=== PATIENT | female | born 1940 | race Caucasian/White ===

== ENCOUNTER 2016-12-02 03:50 | Inpatient (IN) | payer MEDICARE, OTHER ==
[2016-12-02] VITALS (11 sets, daily range): BP systolic 104–224; BP diastolic 54–91; PULSE 74–89; RESP 13–20; O2SAT 93–98
[~2016-12-02] VITALS: Ht 157.5 cm; Wt 46.5 kg
--- NOTE | 2016-12-02 03:52 | ED.REPORT ---
HPI-Chest Pain 40 and Over Date of Service Dec 02, 2016 ED Provider: Kulwinder Cast MD Pt is a 76 year old female with a history of triple bypass, HTN, DM, MCI, and cardiac stent placement who presents to the ED via EMS complaining of substernal chest pain onset 00:00 while she was sleeping. She c/o pain radiating to her back, SOB, and dizziness. She denies any other symptoms. Pt was given Nitro 0.4 mg SL x3 at 01:00 en route with relief. She was also provided Nitro 1x 0.4 mg SL and ASA 243 mg chewable MEDICATION RECONCILIATION TECHNICIAN by EMS. Nursing Notes Stated Complaint: CHEST PAIN Chief Complaint: Chest pain Nursing Notes Reviewed: Yes Allergies: Coded Allergies: sulfamethoxazole (Verified Allergy, Unknown, 12/02/16) trimethoprim (Verified Allergy, Unknown, 12/02/16) Scheduled Atorvastatin (Lipitor) 20 Mg Tablet 20 MG PO DAILY Bimatoprost (Lumigan) 45 Drop/2.5 Ml Ophsoln 45 DROP OD HS Carvedilol (Carvedilol) 3.125 Mg Tablet 3.125 MG PO DAILY Clopidogrel Bisulfate (Plavix) 75 Mg Tablet 75 MG PO DAILY Fluoxetine (Fluoxetine) 10 Mg Capsule 10 MG PO DAILY Furosemide (Furosemide) 20 Mg Tab 20 MG PO DAILY take 1 tab daily PRN for weight gain of 2# or more a day or 5# weekly, do not exceed 1 tab in 24 hrs Insulin Glargine (Lantus U100 Solostar Insulin Pen) 100 Unit/1 Ml Insuln.pen 7 UNIT SUBQ QPM cut dose in 1/2 if nothing by mouth Insuln Asp Prt/Insulin Aspart (NovoLOG 70/30 U100 Insulin Flexpen) 100 Unit/Ml Unit 1 UNIT SUBQ HS per sliding scale Levothyroxine (Levothyroxine) 112 Mcg Tablet 112 MCG PO DAILY Scheduled PRN Nitroglycerin SL (Nitroglycerin SL) 0.4 Mg Tab.subl 0.4 MG SL PRN as needed Miscellaneous Medications Brimonidine Tartrate (Alphagan P) 5 Ml Drops 5 ML OP Eplerenone (Inspra) 25 Mg Tablet 25 MG PO General Time Seen by MD: 03:51 Chief Complaint Chest pain Hx Obtained From: Patient, EMS Arrived By: Ambulance Sudden in Onset?: No Onset Occurred: 1 - 4 hours ago Symptom Duration: Since onset Location: : Substernal Quality: Painful Radiation: : Back Migration/Movement: Reports: None Severity: Current: Moderate Severity: Maximum: Moderate Recent Healthcare: No recent doctor visit, No recent hospitalization Similar Sx Previous: Yes Past Medical History Past Medical History Hypothyroidism Kidney failure MCI Stroke Glaucoma Peripheral neuropathy Reports: Diabetes mellitus (Type I), GERD Reports: Depression Past Surgical History Triple bypass Smoking History Former Smoker Social History Alcohol Use: Denies alcohol use Drug Use: Denies drug use Ambulatory Status Independent Review of Systems Constitutional: Denies: Fever Respiratory: Reports: Shortness of breath, Denies: Non-productive cough Cardiovascular: Reports: Chest pain Musculoskeletal: Reports: Back pain Complete sys rev & neg: except as marked. Physical Exam Initial Vital Signs Vital Signs (First) Date Time Temp Pulse Resp B/P Pulse Ox O2 Delivery O2 Flow Rate FiO2 12/02/16 04:01 36.9 85 13 197/91 98 Room Air Initial VS: Reviewed, Vital signs abnormal Head / Eyes: Atraumatic, Normocephalic Neck: Supple, Full range of motion Extremities: Vascular intact, Neuro intact Skin: Warm, Dry, No cyanosis Neurologic: Alert, Oriented, Nonfocal Psychiatric: Mood/affect normal, Behavior normal General/Constitutional: Awake, Alert Respiratory / Chest: Atraumatic, Breath sounds NL, Breath sounds = bilat Cardiovascular: Heart rate NL, Regular rhythm, Heart sounds NL Abdomen: Atraumatic, Soft, Non-tender Interpretation & Diagnostics Lab Results Interpretation Result Diagram: 12/02/16 0316 12/02/16 0316 Test 12/02/16 03:16 12/02/16 04:48 White Blood Count 7.7th/mm3 (3.8-10.1) Red Blood Count 4.43mil/mm3 (3.90-5.20) Hemoglobin 12.0g/dL (12.0-15.6) Hematocrit 37.8% (35.0-46.0) Mean Corpuscular Volume 85fL (81-100) Mean Corpuscular Hemoglobin 27.1pg (27.0-35.0) Mean Corpuscular Hemoglobin Concent 31.7% (32.0-37.0) Red Cell Distribution Width 14.6% (12.3-15.4) Platelet Count 252bil/L (150-400) Neutrophils (%) (Auto) 61.6% (40-74) Lymphocytes (%) (Auto) 26.8% (14-46) Monocytes (%) (Auto) 8.2% (4-12) Eosinophils (%) (Auto) 2.7% (0-5) Basophils (%) (Auto) 0.4% (0-3) Sodium Level 139mEq/L (134-144) Potassium Level 4.9mEq/L (3.5-5.2) Chloride Level 99mEq/L (97-108) Carbon Dioxide Level 23mmol/L (18-29) Blood Urea Nitrogen 31mg/dL (8-27) Creatinine 0.94mg/dL (0.57-1.00) Estimat Glomerular Filtration Rate 82mL/min (>59) Glucose Level 339mg/dL (60-99) Calcium Level 9.9mg/dL (8.5-10.1) Magnesium Level 1.8mg/dL (1.6-2.6) Total Bilirubin 0.2mg/dL (0.0-1.2) Aspartate Amino Transf (AST/SGOT) 18U/L (0-50) Alanine Aminotransferase (ALT/SGPT) 10U/L (0-32) Alkaline Phosphatase 124U/L (25-165) Total Creatine Kinase 52U/L (21-215) Creatine Kinase MB 2.2ng/mL (0.0-5.3) Creatine Kinase MB % % (0.0-5.0) Troponin T 0.010ug/L (0.0-0.011) Total Protein 7.2g/dL (6.4-8.4) Albumin 4.1g/dL (3.4-5.0) Procalcitonin 0.40ng/mL (0.00-0.08) Lactic Acid Level 0.7mmol/L (0.4-2.0) Lab values outside NL range: no clinical significance. Lab Results Interpretation: Nonfasting glucose, elevated d-dimer ECG Interpretation ECG Interpretation: Sinus rhythm with a rate of 82 Prolong OH interval IVCD, consider atypical RBBB LVH with secondary repolarization abnoramality Anterior infarct, old Time: 03:52 Interpreted by: ED physician X-Ray Chest Interpretation Chest Xray Interpretation: Right lower lobe infiltrate with an effusion. View: Portable, 1 view Interpretation / Wet Read by: Wet read ED physician Re-Eval/Medical Decision Med Decision/Clinical Course 68-year-old female who presents with chest discomfort. She is found to have a right lower lobe pneumonia and pleural effusion. I have no comparison films to estimate the chronicity of this, but it certainly sounds acute from her history. She will be admitted to the hospitalist service. She was evaluated by the hospitalist here in the emergency room. Source of Hx: Old records Time of Eval: 04:29 Re-Evaluation/Progress Note: Pt rechecked. Informed pt of plan for admission. Pt understands and agrees with plan for admission. All questions addressed. Consultation : Referral / Consult Name: Jenny Ahuja Consulted With: Hospitalist Call Returned at: 04:25 Engineering Analyst: Will see patient, Agrees with eval, Agrees with plan, Accepts admit Counseled Regarding: Diagnosis, Lab results, Need for admission Discharge & Departure Primary Impression: Pneumonia Pneumonia type: due to unspecified organism Laterality: right Lung location : lower lobe of lung Qualified Code: J18.1 - Lobar pneumonia, unspecified organism Additional Impression: Pleural effusion on right Disposition: ADMITTED TO HOSPITAL (ERASED) Discharge Condition All VS Reviewed: Yes Condition: Stable Scribe Attestation Portions of this note were transcribed by Alison Lopez. I, Dr. Cast personally performed the history, physical exam and medical decision-making; I reviewed and confirmed the accuracy of the information in the transcribed note. Signed by: Coreen Martínez, 12/02/16. Kulwinder Cast MD Dec 02, 2016 03:52 Alison Parmar Dec 02, 2016 04:00
[2016-12-02 04:05] LABS: BASOPHILS % (AUTO) 0.4 % (0-3); EOSINOPHILS % (AUTO) 2.7 % (0-5); MONOCYTES % (AUTO) 8.2 % (4-12); Mean Corpuscular Hemoglobin 27.1 pg (27.0-35.0); Mean Corpuscular Volume 85 fL (81-100); NEUTROPHILS % (AUTO) 61.6 % (40-74); Platelet Count 252 bil/L (150-400)
[2016-12-02] MEDS ORDERED: BRIM5DRO2 OP (04:22)
[2016-12-02 04:28] LABS: TROPONIN T 0.01 ug/L (0.0-0.011)
[2016-12-02] MEDS ORDERED: 0.9% Sodium Chloride 1,000 ML IV SCH (04:31)
[2016-12-02] MEDS ORDERED: Alum-Mag Hydrox-Simeth 30 mL Suspension PO PRN (04:35)
[2016-12-02] MEDS ORDERED: Polyethylene Glycol (PEG) 17 Gm Powder PO PRN (04:35)
[2016-12-02] MEDS ORDERED: Senna-Docusate 8.6-50 mg Tablet PO PRN (04:35)
[2016-12-02] MEDS ORDERED: Ondansetron 2 mg/mL 2 mL Inj IVPUSH PRN (04:35)
[2016-12-02] MEDS ORDERED: Atropine 1 mg/10 mL (Code) Syringe IVPUSH PRN (04:35)
[2016-12-02 04:39] LABS: Magnesium 1.8 mg/dL (1.6-2.6)
[2016-12-02] MEDS ORDERED: INSU100I13 SUBQ (04:42)
[2016-12-02] MEDS ORDERED: ATOR20TA PO (04:42)
[2016-12-02] MEDS ORDERED: EPLE25TA PO (04:42)
[2016-12-02] MEDS ORDERED: FLUO10CA20 PO (04:42)
[2016-12-02] MEDS ORDERED: BIMA2.5D5 OD (04:42)
[2016-12-02] MEDS ORDERED: FUR20 PO (04:42)
[2016-12-02] MEDS ORDERED: NITR0.4T6 SL (04:42)
[2016-12-02] MEDS ORDERED: CLOP75TA3 PO (04:42)
[2016-12-02] MEDS ORDERED: LEVO112T4 PO (04:42)
[2016-12-02] MEDS ORDERED: CARV3.122 PO (04:42)
[2016-12-02] MEDS ORDERED: INSU3INS3 SUBQ (04:42)
[2016-12-02 05:37] LABS: Creatine Kinase 52 U/L (21-215)
--- NOTE | 2016-12-02 05:53 | PCM.HPMED ---
Subjective Date of Service Dec 02, 2016 Primary Provider: Admitting Physician: Primary Care Physician: Attending Physician: Admit Status: From the Emergency Department, Full Admit Chief Complaint: Substernal chest pain. . History of Present Illness: Alana Barksdale is a 68-year-old female with a past medical history of dementia, diabetes mellitus type I, CABG 3 vessels, IA, and CVA who presented to [facility] emergency Department complaining of abrupt onset substernal chest pain. She reports abrupt onset chest pressure around bedtime. She reports accompanying subjective shortness of breath, lightheadedness, slight headache, and pain in the middle of her back. The chest pressure did not radiate. She denies jaw, neck, shoulder or arm pain. She was given Nitro 0.4 mg SL x3 at 01:00 en route. She reports that the pain resolved but the pressure has persisted. She denies any history of stent implantation. She does have a long-standing history of a right lung effusion that has been tapped several times. She recently moved to [place] from [place], [place] to live with her son for worsening dementia. She denies headache, sore throat, rhinitis, cough, abdominal pain, nausea, vomiting, fever, chills, dysuria, diarrhea or constipation. She has had no recent sick contacts. Vital signs in the ER: Temperature 36.9. Pulse 85. Respiratory rate 13. Blood pressure 197/91. Pulse ox 98% on room air. No PCP. . Review of Systems: A comprehensive review of systems was conducted with the patient and found to be negative except as above in the History of Present Illness. . Allergies Coded Allergies: sulfamethoxazole (Verified Allergy, Unknown, 12/02/16) trimethoprim (Verified Allergy, Unknown, 12/02/16) Home Medications Atorvastatin 20 mg daily. Lumigan otic drops daily at bedtime. Carvedilol 3.125 mg daily. Plavix 75 mg daily. Eplerenone 25 mg daily. Fluoxetine 10 mg daily. Furosemide 20 mg daily. Insulin 70/30 Lantus 7 units daily at bedtime. Levothyroxine 112 g daily. Nitroglycerin 0.4 mg Sublingual every 5 minutes as needed for chest pain. PMH 1. Type I diabetes mellitus. 2. Dementia. 3. History of CVA. 4. History of IA. 5. CABG 3 vessels. 6. Right lung effusion. 7. CHF. 8. Hyperlipidemia. 9. Depression. 10. Hypothyroidism. . Surgical History 1. Tonsillectomy. 2. Appendectomy. 3. section 2. 4. Pacemaker implantation on left side (still in place but deactivated). 5. Defibrillator implantation on right side. . Family History Father who of a brain aneurysm. Mother who had diabetes mellitus. 2 sisters who are alive and healthy. . Social History Hx Alcohol Use: No Hx Substance Use: No Hx Tobacco Use: Yes Smoking Status: Former Smoker (1ppd x 5 years, quit 1961), Unknown if Ever Smoker Exam Vital Signs Vital Sign - Last Date Time Temp Pulse Resp B/P Pulse Ox O2 Delivery O2 Flow Rate FiO2 12/02/16 04:01 36.9 85 13 197/91 98 Room Air Exam General: Elderly female lying in bed and in no acute distress, well-developed, well-nourished, appropriately interactive. HEENT: Normocephalic, atraumatic. External ears without defect. Pupils equal, round, and reactive to light. Anicteric sclerae, moist conjunctivae, and no lid lag. Injected left eye. Oropharynx free of erythema and cobble stoning with moist mucosa. Neck: Supple with full range of motion. No jugular venous distension. No bruits. No lymphadenopathy or thyromegaly. Cardiovascular: Regular rate and rhythm with no murmurs, rubs, or gallops appreciated Pulmonary: Decreased lung sounds at right base otherwise clear to auscultation bilaterally without crackles, wheezes, or rhonchi. Normal respiratory effort with no use of accessory muscles. Abdomen: Soft, nontender, nondistended, bowel sounds present. No hepatosplenomegaly or masses appreciated. Extremities: No clubbing, cyanosis, or edema. Skin: Normal temperature, turgor, and texture; no rash, ulcers, or subcutaneous nodules appreciated. Neurological: Cranial nerves grossly intact. Normal muscle strength, tone, and bulk. Reflexes, coordination, and sensory function within normal limits. No known gait impairment. Psychiatric: Normal mood and affect. Alert and oriented to person, place, and time. MSK: no erythema / edema of joints Lymph: no cervical or supraclavicular lymphadenopathy . Lab and Diagnostics Labs Item Value Date Time Calcium Level 9.9 mg/dL 8/7/17 0316 Magnesium Level 1.8 mg/dL 12/02/16315 Total Bilirubin 0.2 mg/dL 12/02/16315 Aspartate Amino Transf (AST/SGOT) 18 U/L 12/02/16315 Alanine Aminotransferase (ALT/SGPT) 10 U/L 12/02/16315 Alkaline Phosphatase 124 U/L 12/02/16315 Troponin T 0.010 ug/L 12/02/16315 Total Protein 7.2 g/dL 12/02/16315 Albumin 4.1 g/dL 12/02/16315 Procalcitonin 0.40 ng/mL H 12/02/16315 Result Diagram: 12/02/16315 Microbiology Blood culture 2 pending X-Rays, CTs and MRIs Chest x-ray wet read by ED physician: Right lower lobe infiltrate with pleural effusion. . 12-lead ECG EKG read by ER physician: Sinus rhythm with a rate of 82, prolonged IL interval, IVCD, consider atypical RBBB, LVH with secondary repolarization abnoramality, Anterior infarct, old. . Assessment & Plan Alana Barksdale is a 68-year-old female with a past medical history of dementia, diabetes mellitus type I, CABG 3 vessels, IA, and CVA who presented to [facility] emergency Department complaining of abrupt onset substernal chest pain. 1. Acute chest pain, present on admission. Active. - The patient presented with chest pressure and pain, shortness of breath, back pain, and lightheadedness. - Cardiac risk factors include: Previous IA, age, hypertension, hyperlipidemia, diabetes mellitus type I and former smoker. - EKG showed an old anterior infarct without ischemic changes such as ST elevation or depression. - Initial troponin negative. Ordered serial troponins 3. - Nitroglycerin and morphine as needed for chest pain. - Ordered exercise stress test with echocardiogram. 2. Acute right lower lobe community-acquired pneumonia with effusion, present on admission. Active. - Patient reports she has had a right pleural effusion that has been tapped several times in the past several years. - Pro-calcitonin elevated at 0.40. - Started ceftriaxone 2g every 24 hours azithromycin 500 mg daily. - Ordered complete pneumonia workup including: Blood culture 2, sputum Gram stain and culture, strep pneumonia and legionella urine antigens, and respiratory viral PCR. Chronic problems: Hyperlipidemia, present on admission. Stable. - Continue atorvastatin 20 mg daily. Congestive heart failure, present on admission. Presumed stable. - Continue carvedilol 3.125 mg daily, Eplerenone 25 mg daily, furosemide 20 mg daily, and Plavix 75 mg daily. Depression, present on admission. Stable. - Continue fluoxetine 10 mg daily. Diabetes mellitus type I, present on admission. Stable. - Hemoglobin A1c pending. - Continue home insulin regimen with Lantus 7 units daily at bedtime and insulin 70/30 based on correctional scale. - Ordered heart healthy/carbohydrate consistent diet when able to take in PO. Hypothyroidism, presents on admission. Stable. - Continue levothyroxine 112 g daily. PRN antiemetics: Zofran and Maalox. PRN bowel regimen: Senna and MiraLAX. PRN analgesics: Tylenol. Patient is admitted under inpatient status with expected length of stay greater than 2 midnights due to severity of presenting symptoms, risk of adverse event, and complexity of treatment plan. . VTE Prophylaxis: Sub-Q Heparin (Unfractionated) Resuscitation Status: DNR/DNI:Do Not Resuscitate/Intubate Attending Statement The patient was seen and examined together with house staff on 12/02/2016 and I agree with the history, exam and plan as outlined in the note above. Lashonda West DO Dec 02, 2016 04:32 Jenny Ahuja DO Dec 02, 2016 06:17
[2016-12-02] MEDS ORDERED: cefTRIAXone Inj 2,000 MG in Dextrose 5% Minibag Plus 50 ML IV SCH (06:00)
[2016-12-02] MEDS ORDERED: Labetalol 5 mg/mL 20 mL Inj IVPUSH ONE (06:45)
--- NOTE | 2016-12-02 07:24 | NUR ---
Admit Patient admitted to room 3025 at 0525 from ED. Alert and oriented. Med list completed by ED RN. Telemetry connected. Oriented to room, call light, plan of care, hospital policies, intentional rounding. White board updated. Patient has implanted constant glucose monitor on posterior upper left arm. Christine alarm in place, yellow socks on, call light within reach. Droplet precautions in place for pending viral respiratory PCR.
--- NOTE | 2016-12-02 07:27 | NUR ---
Hypertension Patient had two BP readings at admit, last one 224/82. MD called. Discussed blood pressures, ordered stress test, and medications. MD suggested Labetalol, reminded MD about stress test ordered. MD reported that she would "look into it, and call back". MD returned phone call after discussing with night resident, new order for 20 mg IV Labetalol. Day RN aware of pressures, ordered stress test, and medication orders. Day RN to discuss plan with oncoming day .
--- NOTE | 2016-12-02 07:28 | NUR ---
Stress test/labetelol Received report from Night nurse r/t patient BP elevated. night nurse called night hospitalist and received orders for Labetelol IV. Rechecked BP 186/75, pulse 80. Notified Green team hospitalist r/t elevated BP and and states," do not give Labetelol IV once and hold Beta blockers for stress test." patient is asymptomatic and family at bed side. Will hold beta blockers and Labetolol IV per Dr. Joy orders.
[2016-12-02] MEDS ORDERED: 0.9% Sodium Chloride 250 ML ONE (07:43)
[2016-12-02] MEDS: Azithromycin Inj 500 MG in Dextrose 5% w/Vial Mate 250 ML IV SCH (07:49)
--- NOTE | 2016-12-02 08:31 | PCM.PNMED ---
Subjective Date of Service Dec 02, 2016 Subjective Admitted last night; CP sob some cough starting middle night. Still with some chest pain and cough. Son present. Exam Vital Signs Vital Sign - Last Date Time Temp Pulse Resp B/P Pulse Ox O2 Delivery O2 Flow Rate FiO2 12/02/16 07:24 80 186/75 12/02/16 05:56 20 96 Room Air 12/02/16 05:48 36.7 Intake and Output 12/01/16 12/01/16 12/02/16 Cumulative From/Thru 15:00 23:00 07:00 12/02/16 04:01 - 12/02/16 05:48 Intake Total 700 ml 700 ml Balance 700 ml 700 ml Intake IV Total 700 ml 700 ml Exam Skin; warm and dry HEENT; no lesions, good hydration Eyes; pati eom intact; CV, 2/6 systolic murmur, sig JVD, very little edema Resp; scattered crackles prominent RLL, no wheezing GI; soft non acute benign Lab and Diagnostics Result Diagram: 12/02/1631512/02/16315 Microbiology Blood culture 2 pending X-Rays, CTs and MRIs Chest x-ray wet read by ED physician: Right lower lobe infiltrate with pleural effusion. . 12-lead ECG EKG read by ER physician: Sinus rhythm with a rate of 82, prolonged CA interval, IVCD, consider atypical RBBB, LVH with secondary repolarization abnoramality, Anterior infarct, old. . Assessment & Plan Alana Barksdale is a 68-year-old female with a past medical history of dementia, diabetes mellitus type I, CABG 3 vessels, OK, and CVA who presented to [facility] emergency Department complaining of abrupt onset substernal chest pain. 1. Chest pain, present on admission. Active. - rule out OK - Cardiac risk factors include: Previous OK, age, hypertension, hyperlipidemia, diabetes mellitus type I and former smoker, CABG - EKG showed an old anterior infarct without ischemic changes such as ST elevation or depression. - Initial troponin negative. Ordered serial troponins 3. - I will cancel stress test for now as we treat patient for CHF and Pneumonia, trend troponine and EGG, as patient improves consider stress test. 2. Possible Acute right lower lobe community-acquired pneumonia with effusion, present on admission. Active. - Patient reports she has had a right pleural effusion that has been tapped several times in the past several years. - Pro-calcitonin elevated at 0.40. - Started ceftriaxone 2g every 24 hours azithromycin 500 mg daily 12/02/16 - Ordered complete pneumonia workup including: Blood culture 2, sputum Gram stain and culture, strep pneumonia and legionella urine antigens, and respiratory viral PCR. -CTA chest 3. Acute on Chronic CHF, poa, active -echo ordered -daily standing weights -lasix 20 IV q 8 hours, hold oral lasix Chronic problems: Hyperlipidemia, present on admission. Stable. - Continue atorvastatin 20 mg daily. Depression, present on admission. Stable. - Continue fluoxetine 10 mg daily. Diabetes mellitus type I, present on admission. Stable. - Hemoglobin A1c pending. - Continue home insulin regimen with Lantus 7 units daily at bedtime -order nutritional insulin 3 ac tid, and low dose correction - Ordered heart healthy/carbohydrate consistent diet when able to take in PO. Hypothyroidism, presents on admission. Stable. - Continue levothyroxine 112 g daily. PRN antiemetics: Zofran and Maalox. PRN bowel regimen: Senna and MiraLAX. PRN analgesics: Tylenol. Patient is admitted under inpatient status with expected length of stay greater than 2 midnights due to severity of presenting symptoms, risk of adverse event, and complexity of treatment plan. . VTE Prophylaxis: Sub-Q Heparin (Unfractionated) Resuscitation Status: DNR/DNI:Do Not Resuscitate/Intubate Sendy Correia MD Dec 02, 2016 08:31
[2016-12-02] MEDS ORDERED: Insulin GLARgine 100 Unit/mL Syringe SUBQ STA (08:38)
[2016-12-02] MEDS ORDERED: Glucose 40% Oral Gel 15 Gm Tube PO PRN (08:40)
[2016-12-02] MEDS: Sodium Chloride LOK Flush 10 mL Syringe IVFLUSH SCH ×2 (08:45→15:34)
[2016-12-02] MEDS: Heparin 5,000 Unit/mL Inj SUBQ SCH ×2 (08:46→15:35)
[2016-12-02] MEDS: Furosemide 10 mg/mL 2 mL Inj IVPUSH SCH ×3 (09:02→21:11)
--- NOTE | 2016-12-02 09:29 | NUR ---
Chest pain Dr. worley ordered EKG for chest pain. PRN Nitro given once with effective results, per patient it is better now. BP 109/58, pulse 89 after one dose of nitro. blood sugar 367. Sliding scale starts in the afternoon and hospitalist aware, orders to follow sliding scale. insulin given as ordered per sliding scale. Lantus given as ordered.
[2016-12-02 10:15] LABS: Creatine Kinase 67 U/L (21-215)
[2016-12-02] MEDS: cefTRIAXone Inj 2,000 MG in Dextrose 5% Minibag Plus 50 ML IV SCH (10:40)
[2016-12-02] MEDS: Insulin LISPRO 300 Unit/3 mL Inj SUBQ SCH ×5 (11:49→21:13)
--- NOTE | 2016-12-02 12:31 | NUR ---
CT angio patient back from CT angio in her room.
--- NOTE | 2016-12-02 13:19 | NUR ---
Echo Echo is in progress at bed side.
--- NOTE | 2016-12-02 13:57 | DRSVH ---
PROCEDURE: CT ANGIO CHEST PULMONARY EMBOLISM ([id number]) INDICATIONS: CHEST PAIN SOB TECHNIQUE: After the administration of intravenous contrast, 2 mm thick sections acquired from the pulmonary api wilmar to the posterior costophrenic angles. 3-dimensional maximum intensity projection (MIP) coronal a nd sagittal reformats were then acquired through the thorax. For radiation dose reduction, the follo wing was used: automated exposure control, adjustment of mA and/or kV according to patient size. COMPARISON: [facility], CR, XR CHEST 1VW (PORTABLE), 12/02/2016, 3:53. FINDINGS: Image quality: Excellent. Pulmonary arteries: Pulmonary arteries are normal in size, and demonstrate no intraluminal filling d efects to suggest central pulmonary embolism. Lungs and pleura: Lungs are abnormal with a upper, mid and lower third pattern of right lung pneumon ia, without central mass or internal cavitation, and with associated bilateral pleural effusions mild on the right and minimal on the lef.. No pleural effusions or pneumothorax. Central and peripheral airways are patent. Mediastinum: Heart size is normal, without pericardial effusion. No mediastinal or hilar adenopathy . Thoracic aorta is normal in caliber and enhancement. Esophagus is normal in caliber, without hiat al hernia. Bones and chest wall: No suspicious bony lesions. Ribs and thoracic spine appear intact throughout. Thyroid gland is not well-visualized. No axillary or supraclavicular adenopathy. Abdomen: Visualized upper abdominal solid organs appear normal in the early arterial phase of enhanc ement. IMPRESSION: Right lung pneumonia, predominantly at the right lower lobe but also seen within the midd le and upper thirds of the lung parenchyma. Small right and minimal left effusions noted. No pulmon leti embolus seen. Dictated by: Jaleel Mix M.D. on 12/02/2016 at 13:53 Approved by: Jaleel Mix M.D. on 12/02/2016 at 13:55
--- NOTE | 2016-12-02 14:24 | DRSVH ---
PROCEDURE: X-RAY CHEST ONE VIEW, PORTABLE ([id number]) INDICATIONS: chest pain TECHNIQUE: One view of the chest was acquired. COMPARISON: None. FINDINGS: Surgical changes and devices: Post median sternotomy. Right chest AICD present in expected position. Abandoned cardiac leads of the left hemithorax. Lungs and pleura: Small right pleural effusion present airspace opacity involving the right lung base . Left lung is clear. No pneumothorax. Mediastinum: Mediastinal contours appear normal. Heart size is normal. Bones and chest wall: No suspicious bony lesions. Overlying soft tissues appear unremarkable. Heal ed fracture deformity involving the right humeral head and neck incompletely visualized. IMPRESSION: 1. Small right pleural effusion and right basilar airspace opacity consistent with compressive atelec tasis and/or pneumonia versus aspiration. Continued radiographic surveillance to resolution is recomm ended. 2. Probable healed right humeral head/neck fracture deformity. If indicated right shoulder series co uld be performed for further assessment. Dictated by: Luis E CARO Interpreted: Jaleel Mix MD on 12/02/2016 at 8:49 Approved by: Jaleel Mix M.D. on 12/02/2016 at 14:22
--- NOTE | 2016-12-02 14:51 | DRSVH ---
[facility] [address] [place] [address] Echocardiogram Report Name: STEPHANIE EUBANKS LStudy Date: 12/02/2016 Height: 62 in Hospital Exam Location: [facility] Weight: 105 lb Gender: Female BSA: 1.5 m2 : 1940 Age: 76 yrs BP: 186/75 mmHg Reason For Study: Pneumonia Ordering Physician: Performed By: Digna Elizabeth Interpretation Summary The left ventricle is normal in size. Proximal septal thickening is noted. Left ventricular systolic function is normal. The ejection fraction is estimated to be 60-65%. There is a slight dyssynchronous contraction pattern due to the paced rhythm. There are no focal wall motion abnormalities. Diastolic function could not be accurately assessed due to confounding valvular disease. The right ventricle grossly appears normal in size with probable normal systolic function. There are multiple pacemaker leads in the right ventricle. The right ventricular systolic pressure is estimated at 35 mmHg assuming a right atrial pressure of 3 mm Hg. The left atrium is severely dilated. Right atrial size is normal. There is a catheter/pacemaker lead seen in the right atrium. There is severe mitral annular calcification which makes it difficult to see if there was any prior MV repair. There is mild to moderate mitral stenosis. There is moderate to severe mitral regurgitation. The aortic valve is moderately calcified. The calculated aortic valve area is 1.5 cm2. There is no other significant valvular heart disease. The aortic root is normal size. Procedure: A two-dimensional transthoracic echocardiogram with color flow and Doppler was performed. The study quality was technically adequate. There is no prior echocardiogram noted for this patient. The patient was in normal sinus rhythm during the exam. Left Ventricle: The left ventricle is normal in size. There is normal left ventricular wall thickness. Proximal septal thickening is noted. Left ventricular systolic function is normal. The ejection fraction is estimated to be 60-65%. There is a slight dyssynchronous contraction pattern due to the paced rhythm. There are no focal wall motion abnormalities. Diastolic function could not be accurately assessed due to confounding valvular disease. Right Ventricle: The right ventricle grossly appears normal in size with probable normal systolic function. There is a pacemaker lead in the right ventricle. Atria: The left atrium is severely dilated. Right atrial size is normal. There is a catheter/pacemaker lead seen in the right atrium. The interatrial septum is intact with no evidence for an atrial septal defect. Mitral Valve: The mitral valve leaflets are mildly calcified. There is severe mitral annular calcification. There is mild to moderate mitral stenosis. There is moderate to severe mitral regurgitation. Aortic Valve: The aortic valve is moderately calcified. The calculated aortic valve area is 1.5 cm2. The peak aortic velocity is 1.8 m/sec. The aortic valve mean gradient is 6 mmHg. Severity ratio is 0.56. No aortic regurgitation is present. Tricuspid Valve: The tricuspid valve leaflets are thin and pliable. There is mild tricuspid regurgitation. The right ventricular systolic pressure is estimated at 35 mmHg assuming a right atrial pressure of 3 mm Hg. Pulmonic Valve: The pulmonic valve is normal in structure and function. There is no pulmonic valvular regurgitation. There is no other significant valvular heart disease. Great Vessels: The aortic root is normal size. The IVC is of normal diameter and collapses greater than 50% with a sniff. This suggests a low right atrial pressure of 3 mm Hg. Pericardium/ Pleura There is no pericardial effusion. There is no pleural effusion. MMode/2D Measurements & Calculations LVIDd: 3.9 cm LA dimension: 3.9 cm RA long axis LVOT diam LVIDs: 2.6 cm FS: 31.9 % LA A2 area: 21.9 cm RA area Ao root diam IVSd: 0.78 cm LA A4 area: 27.9 cm LVPWd: 0.61 cm LA length (vol): 5.8 cm : 13.2 cm Aortic Jxn LA vol: 88.8 ml RA vol: 37.2 ml : 2.0 cm LA vol index RA : 25.6 mm/ : 61.1 ml/m2 RVDd major : 5.0 cm LV herrera. diameter/BSA LV sys. diameter/BSA RVD1 (basal) RVD2 (mid) (cm/m^2): 2.7 (cm/m^2): 1.8 : 3.1 cm Doppler Measurements & Calculations Ao V2 max MV E max juan MV E/A: 0.96 TR max juan : 177.3 cm/sec : 156.0 cm/sec : 283.4 cm/sec Ao max PG MV A max juan TR max PG : 12.6 mmHg : 162.7 cm/sec : 32.1 mmHg Ao mean PG MV P1/2t: 111.2 msec PA V2 max MVA(VTI): 1.4 cm2 : 83.6 cm/sec LVOT Max Juan PA mean PG : 98.9 cm/sec ERLIN(I,D): 1.5 cm PA Accel Time sev ratio : 0.15 sec MV V2 mean MV P1/2t max juan Ao V2 mean LV V1 max PG : 105.4 cm/sec : 116.3 cm/sec MV mean PG Ao V2 VTI LV V1 VTI MVA(P1/2t): 2.0 cm2 : 23.7 cm MV V2 VTI: 46.0 cm MV dec time ERLIN(V,D): 1.5 cm2 : 0.37 sec PA V2 mean ERLIN indexed to BSA : 51.6 cm/sec (cm^2/m^2): 1.0 Reading Physician:AMANDA
--- NOTE | 2016-12-02 16:49 | NUR ---
Social Work-initial assessment: Data:See initial assessment. Pt is a 76 y/o female who was admitted on 12/02/16 for Right lower lobe pneumonia per H&P. Pt's insurance is [employer] and PCP is not listed. EMR reviewed. ANN met with pt at bedside, pt has baseline dementia. NAN placed a call to son Ed to discuss discharge planning, SW role explained. Pt has been residing with local son Ed for the last 5 weeks, prior to that pt was living in [place]. Pt uses a cane at baseline and does not drive. Pt has no HH, but does have SNF history in [place]. 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 SW discussed DPOA/ advanced directive, son confirms this has been completed and his brother in [place] is currently DPOA. SW discussed pt's lack of PCP, son confirms they are working on getting this set up for pt. Son confirms family is able to provide 24/7 care at home for pt. SW provided discharge planning checklist and encouraged them to call with any questions, phone number provided. Son to provide transport home. SW will continue to follow. Assessment:Pt who has 24/7 care at home. Plan:Pt to discharge home with family to provide 24/7 care. SW will continue to follow. HUMAIRA Philip Addendum: 12/02/16 at 1656 by AMEE SMART SS Amended: Links added.
--- NOTE | 2016-12-02 17:19 | NUR ---
Mentation Patient is alert and oriented X3. able to make needs know. Stable vital signs and stable oxygenation. patient receiving IV antibiotics for right lower lobe pneumonia. per CT angio no PE noted. Echocardiogram done this shift at bed side. No reports of further chest pain so far this shift. Blood sugars 367, 390, 154. Insulin given as ordered. Stress test with echo has been cancelled. PO scheduled blood pressure medications were given as ordered this AM. patient eating all meals sitting at the edge of the bed. no cardiac distress or respiratory distress noted. patient uses bed side commode with 1 PA. Stable mood. uses call light appropriately. call light with in reach for safety. continue to monitor.
[2016-12-02] MEDS ORDERED: Insulin GLARgine 100 Unit/mL Syringe SUBQ PRN (19:30)
[2016-12-02] MEDS ORDERED: Insulin ASPART 70/30 FlexPen 300 Unit/3 mL Inj SUBQ SCH (21:00)
[2016-12-02] MEDS: Insulin GLARgine 100 Unit/mL Syringe SUBQ SCH (21:12)
[2016-12-03] VITALS (8 sets, daily range): BP systolic 104–176; BP diastolic 63–78; PULSE 74–92; RESP 16–18; O2SAT 96–98
[2016-12-03] MEDS: Sodium Chloride LOK Flush 10 mL Syringe IVFLUSH SCH ×4 (00:30→23:47)
[2016-12-03] MEDS: Heparin 5,000 Unit/mL Inj SUBQ SCH ×4 (00:30→23:48)
[2016-12-03 06:59] LABS: BASOPHILS % (AUTO) 0.3 % (0-3); EOSINOPHILS % (AUTO) 3.7 % (0-5); MONOCYTES % (AUTO) 11.1 % (4-12); Mean Corpuscular Hemoglobin 27.3 pg (27.0-35.0); Mean Corpuscular Volume 82.3 fL (81-100); NEUTROPHILS % (AUTO) 57.3 % (40-74); Platelet Count 226 bil/L (150-400)
[2016-12-03] MEDS: Insulin LISPRO 300 Unit/3 mL Inj SUBQ SCH ×7 (07:30→21:15)
[2016-12-03 07:55] LABS: TROPONIN T 0.01 ug/L (0.0-0.011)
[2016-12-03] MEDS: Azithromycin Inj 500 MG in Dextrose 5% w/Vial Mate 250 ML IV SCH (08:30)
[2016-12-03] MEDS: Furosemide 10 mg/mL 2 mL Inj IVPUSH SCH ×3 (08:31→20:29)
[2016-12-03] MEDS: cefTRIAXone Inj 2,000 MG in Dextrose 5% Minibag Plus 50 ML IV SCH (10:35)
--- NOTE | 2016-12-03 11:56 | DRSVH ---
PROCEDURE: X-RAY CHEST ONE VIEW, PORTABLE ([id number]) INDICATIONS: sob cough TECHNIQUE: One view of the chest was acquired. COMPARISON: [facility], CT, CT ANGIO CHEST PE, 12/02/2016, 12:26. [facility] , CR, XR CHEST 1VW (PORTABLE), 12/02/2016, 3:53. FINDINGS: Surgical changes and devices: Right cardiac pacer and abandoned left hemithorax cardiac leads redemon strated. Prior median sternotomy. Lungs and pleura: Small right pleural effusion persists and there has been interval decrease in airsp maggie opacity involving the right lung base. Left lung is clear. Mediastinum: Mediastinal contours appear normal. Heart size is normal. Bones and chest wall: No suspicious bony lesions. Overlying soft tissues appear unremarkable. IMPRESSION: Improved pulmonary interstitial markings consistent with resolved interstitial edema. Per sistent right pleural effusion possible residual pneumonia or from failure and compressive atelectasi s. Dictated by: Luis E Handley RRA Interpreted: Anmol Perez MD on 12/03/2016 at 11:02 Approved by: Anmol Perez M.D. on 12/03/2016 at 11:55
--- NOTE | 2016-12-03 13:28 | NUR ---
spiritual care: pt request Visited with pt and had a nice conversational visit about malcolm, family and health. Pt recently moved up from [place] and is still deeply mourning the loss of her who four years ago. Pt is thankful to live with her family and seems to be a positive and energetic person. Offered a blessing before leaving the room. Spiritual care will continue to follow as needed.
--- NOTE | 2016-12-03 13:51 | PCM.PNMED ---
Subjective Date of Service Dec 03, 2016 Subjective Patient is feeling better today. Exam Vital Signs Vital Sign - Last Date Time Temp Pulse Resp B/P Pulse Ox O2 Delivery O2 Flow Rate FiO2 12/03/16 12:32 36.3 83 18 104/63 98 Room Air Intake and Output 12/02/16 12/02/16 12/03/16 Cumulative From/Thru 15:00 23:00 07:00 12/02/16 04:01 - 12/03/16 05:45 Intake Total 1173 ml 0 ml 1873 ml Output Total 1050 ml 930 ml 1980 ml Balance 123 ml -930 ml -107 ml Intake Oral 700 ml 0 ml 700 ml IV Total 473 ml 1173 ml Output Urine Total 1050 ml 930 ml 1980 ml # Voids 2 2 # Bowel Movements 1 0 1 Exam PHYSICAL EXAM: GENERAL: Alert, not in distress, cooperative HEAD: atraumatic, normocephalic, no bruises. EYES: RAMÓN, EOMI, anicteric, able to fully open and close eyelids SKIN: Skin color normal, turgor normal. No visible rashes or lesions. EAR, NOSE, MOUTH, THROAT: Lips, oral mucosa, tongue are moist, pink, no lesions. Ears normal appearance, no lesions. NECK: no jugulovenous distention, no carotid bruits, carotid pulse normal contour, No carotid bruit, no enlarged lymph nodes appreciated; supple ROM normal. RESPIRATORY: Decreased breath sounds bilaterally. Good diaphragmatic excursion. CARDIAC: normal S1 and S2; no rubs, murmurs, or gallops; regular rhythm ABDOMEN: Abdomen soft, non-tender. BS normal. No masses or organomegaly. MUSCULOSKELETAL: ROM full, muscles are not tender EXTREMITIES: no pitting edema in LE, no new deformities or skin discoloration. NEURO: Alert, oriented X 3, Sensation grossly intact., Cranial nerves II-XII intact, Grossly normal motor function. PULSES: 2+ radial, 2+ carotid REVIEW OF SYSTEMS: GENERAL: no malaise, no fevers., SEE HPI HEENT: Negative for frequent or significant headaches All other reviewed and negative other than HPI. IVs and Medications Medications Reviewed: Medications were reviewed in detail Lab and Diagnostics Result Diagram: 12/03/16 0635 12/03/16 0635 Microbiology Blood culture 2 pending X-Rays, CTs and MRIs Chest x-ray wet read by ED physician: Right lower lobe infiltrate with pleural effusion. . 12-lead ECG EKG read by ER physician: Sinus rhythm with a rate of 82, prolonged AK interval, IVCD, consider atypical RBBB, LVH with secondary repolarization abnoramality, Anterior infarct, old. . Assessment & Plan Alana Barksdale is a 68-year-old female with a past medical history of dementia, diabetes mellitus type I, CABG 3 vessels, AK, and CVA who presented to [facility] emergency Department complaining of abrupt onset substernal chest pain. Chest pain, present on admission - improved - Cardiac risk factors include: Previous AK, age, hypertension, hyperlipidemia, diabetes mellitus type I and former smoker, CABG - EKG showed an old anterior infarct without ischemic changes such as ST elevation or depression. - Troponin normal Plan - treat patient for CHF exacerbation and Pneumonia - will consider stress test later Acute right lower lobe community-acquired pneumonia with effusion, present on admission. Active. - stable - Personally reviewed chest x-ray- significant for right lower lobe infiltrates - Pro-calcitonin elevated at 0.40. Plan - ceftriaxone 2g every 24 hours azithromycin 500 mg daily 12/02/16 -Follow up Blood culture 2, sputum Gram stain and culture, strep pneumonia and legionella urine antigens, and respiratory viral PCR. Acute on Chronic diastolic CHF - stable Plan - f/u echo -lasix, BB Hyperlipidemia - Stable. - Continue current meds Depression, present on admission. Stable. - Continue fluoxetine 10 mg daily. Diabetes mellitus type I, present on admission. - stable - c/w current meds Hypothyroidism, presents on admission - stable - Continue levothyroxine. PRN antiemetics: Zofran and Maalox. PRN bowel regimen: Senna and MiraLAX. PRN analgesics: Tylenol. DVT PROPHYLAXIS: Heparin Code status: Patient like to be DO NOT RESUSCITATE Disposition: discharge in 1-3 days after patient improves. Labs, radiology tests, Tele and ECG reviewed. Plan of care, medication side effects, home medication, diagnostic procedures and available alternatives were discussed and reviewed with patient/family. All questions answered. Patient/family verbalized understanding, approved and agreed to plan of care. Given patient's current condition, I certify, in my opinion inpatient services greater than two midnights are medically necessary for this patient. Please see H&P and MD progress notes for additional information about patient's course of treatment. VTE Prophylaxis: Sub-Q Heparin (Unfractionated) Resuscitation Status: DNR/DNI:Do Not Resuscitate/Intubate Yovany Thomason MD Dec 03, 2016 13:51 All questions answered. Patient/family verbalized understanding, approved and agreed to plan of care. Given patient's current condition, I certify, in my opinion inpatient services greater than two midnights are medically necessary for this patient. Please see H&P and MD progress notes for additional information about patient's course of treatment. VTE Prophylaxis: Sub-Q Heparin (Unfractionated) Resuscitation Status: DNR/DNI:Do Not Resuscitate/Intubate Yovany Thomason MD Dec 03, 2016 13:51
--- NOTE | 2016-12-03 16:04 | NUR ---
NUTRITION: web systems developer requested that RD speak with family about pt meals. Attempted to visit with family today, but no family was available at bedside. Will attempt to catch family tomorrow to go over any questions or concerns regarding pt diet. Addendum: 12/04/16 at [address] Family not available in room today. Call Ed to address concerns regarding number of carbs on meals trays. Ed states that everything is fine now as pt has been placed on a 45 g carb consistent diet which is close to what she follows at home. All questions/concerns answered at this time.
--- NOTE | 2016-12-03 17:07 | NUR ---
Social Work-continued d/c planning: Data:EMR reviewed. Pt is on day 1 of hospitalization for right lower lobe pneumonia per H&P. Pt is not medically stable anticipate several more days. Pt's son requested to speak with SW. Son informed SW that they are interested in some assistance getting pt established with local PCP and are interested in seeing Dr. Shawanda Walter DO. SW explained that once MD order has been obtained, SW can call clinic and determine how far she is out to see pt. SW also discussed residency clinic and other local PCP, resources to be provided. Son anticipates to take pt home with family to provide 24/7 care. SW will continue to follow. Assessment:Pt who has 24/7 care at home. Plan:Pt to discharge home with 24/7 care. SW to wait until order is obtained from MD to work on setting up PCP. SW will continue to follow. HUMAIRA Philip
--- NOTE | 2016-12-03 18:12 | NUR ---
Blood Sugars A.m. BG 63, asymptomatic, insulin withheld & breakfast given. 1115 BG 471, 8units admin per order, pre-dinner BG 243 5units admin per order. Family states patient is a brittle diabetic, she's been diabetic for 70 years and her BG's are usually all over. Family requesting patient to be placed on a 30-40 carb diet vs what she's been getting. Md aware of families request, changes made w/ the kitchen.
[2016-12-03] MEDS: Insulin GLARgine 100 Unit/mL Syringe SUBQ SCH (20:28)
[2016-12-04] VITALS (9 sets, daily range): BP systolic 116–182; BP diastolic 69–78; PULSE 74–93; RESP 16–18; O2SAT 95–97
[2016-12-04] MEDS: Insulin LISPRO 300 Unit/3 mL Inj SUBQ SCH ×7 (08:06→21:10)
[2016-12-04] MEDS: Furosemide 10 mg/mL 2 mL Inj IVPUSH SCH ×3 (08:30→15:47)
[2016-12-04] MEDS: Heparin 5,000 Unit/mL Inj SUBQ SCH ×3 (09:16→23:34)
[2016-12-04] MEDS: Sodium Chloride LOK Flush 10 mL Syringe IVFLUSH SCH ×3 (09:16→23:34)
--- NOTE | 2016-12-04 11:26 | NUR ---
[facility] to schedule a follow up with Dr. Ortega, per HEAV[employer] EQUIPMENT FIELD MECHANIC. Appointment is scheduled for Friday the at 0820 with an 0805 check-in time. Addendum: 12/04/16 at 1357 by KANE VENCES SS Rescheduled appointment per [employer] EQU[employer] FIELD MECHANIC. Appointment will now be at 1120 with . Addendum: 12/04/16 at 1501 by KANE VENCES SS Friday the , at 1120.
[2016-12-04] MEDS: Azithromycin Inj 500 MG in Dextrose 5% w/Vial Mate 250 ML IV SCH (13:45)
--- NOTE | 2016-12-04 14:42 | NUR ---
spiritual care: pt request conversational visit. pt bright and pleasant. described recent procedure (stress test) and her recent move from [facility], specifically that her son drove to get her, that she was glad for this attention and that her dog could move with her. 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 pt detailed her experiences with receiving diagnosis of type 1 diabetes at age 5 and her coping since. She repeated her pleasure in her status as among the few oldest diabetics in the country. Some repetition in content, although she could easily engage more about a memory and current life event when asked. snf memories clear and source of pleasure for her. Pt expressed her malcolm easily, spoke of her prayer life and conception of her disease since a young age "i decided i had to make friends with diabetes because it would be with me all my life". She also spoke in detail about "jessi" webbased bloodsugar monitoring and other changes in d. management. She shared personal memories and hopes which include writing, interacting with family, "meeting my and the dog when it's time" and expressed little anxiety about current medical events. Prayer pt acknowledged changes in her needs and expressed confidence in her son Ed's ability and willingness to provide for her care at home.
--- NOTE | 2016-12-04 14:42 | DRSVH ---
PROCEDURE: 1 DAY PHARMACOLOGICAL STRESS TEST Rest and pharmacological stress myocardial perfusion SPECT; gated images not acquired. RADIOPHARMACEUTICAL: 8.2 mCi Tc-99m tetrafosmin IV at rest and 24.8 mCi Tc-99m tetrafosmin IV at pea k effect of pharmacological stress. [id number] was performed. INDICATIONS: CHEST PAIN. TECHNIQUE: Radiopharmaceutical was injected at peak stress test, and also at rest. SPECT images wer e obtained. SPECT myocardial perfusion images were displayed in short axis, horizontal long axis, an d vertical long axis views. Images were reviewed using [employer] software. COMPARISON: None. CARDIAC STRESS: A pharmacologic stress test was performed under the supervision of an attending staff, using an infus ion of Lexiscan (0.4 mg/5 mL). Hemodynamic data: There is normal blood pressure and heart rate response to pharmacologic stress. Symptoms: The patient denied anginal chest pain. Aminophylline: None. EKG: Rest EKG demonstrated sinus rhythm with horizontal/downsloping ST segment depression up to 1 mm in leads V5, V6. Dermatologic stress EKG demonstrated further ST segment depression up to 2 mm in hira ds V5, V6. No ectopy. FINDINGS: Raw data: There is good myocardial uptake of radiotracer. No significant motion artifacts. Left ventricle function: Stress phase gated images were unable to be obtained for functional assessme nt, due to irregular heart rate. Resting phase dated images demonstrate moderate proximal septal wall at the lesion with rest end-diastolic volume of 39 ml and at rest ejection fraction of 64%. Myocardial perfusion: There is a small, fixed perfusion defect in the lateral wall compatible with s mall area of prior infarction. There is a moderate sized, moderately intense reversible perfusion def ect involving the mid and distal lateral wall compatible with area of ischemia. There is otherwise no rmal distribution of radiotracer in the left ventricular myocardium during rest and stress phases. IMPRESSION: 1. Abnormal study demonstrating small lateral wall infarct with moderate sized, moderately intense la teral wall isidoro-infarct ischemia. 2. Left ventricular stress phase systolic function cannot be assessed due to irregular heart rate. 3. Left ventricular rest phase function demonstrates moderate proximal septal wall hypokinesia and re st LVEF of 64%. 4. Normal hemodynamic response to pharmacologic stress. PQRS ATTESTATIONS: Measure 322 - Is this imaging test primarily performed on a low-risk surgery patient for preoperative evaluation within 30 days preceding their low-risk non-cardiac surgery? Low-risk surgery is defined as cardiac or myocardial infarction less than 1%, including (but not limited to) endoscopic pr ocedures, superficial procedures, cataract surgery, and excisional breast surgery: Answer: No Measure 323 - Is this imaging test performed primarily for the monitoring of an asymptomatic patient who had percutaneous coronary intervention on the visit date or within 2 years of the visit date? An swer: No Measure 324 - Is this imaging test performed primarily for the initial detection and risk assessment on an asymptomatic, low coronary heart disease patient? Low CHD risk definition = clinicians should consider the maximum number of available patient factors used to estimate risk based on [place] (A TP III criteria), typically age, gender, diabetes, smoking status, and use of blood pressure medicati on, and integrate age appropriate estimates for missing elements, such as LDL or standard blood press ure. Answer: No Dictated by: Ndiia Alamo MD, PhD on 12/04/2016 at 14:24 Approved by: Nidia Alamo MD, PhD on 12/04/2016 at 14:41
--- NOTE | 2016-12-04 14:56 | PCM.PNMED ---
Subjective Date of Service Dec 04, 2016 Subjective Patient is doing better today. She will have stress test to relieve her chest pain she had on admission Exam Vital Signs Vital Sign - Last Date Time Temp Pulse Resp B/P Pulse Ox O2 Delivery O2 Flow Rate FiO2 12/04/16 13:30 36.6 93 18 146/69 95 Room Air Intake and Output 12/03/16 12/03/16 12/04/16 Cumulative From/Thru 15:00 23:00 07:00 12/02/16 04:01 - 12/04/16 06:00 Intake Total 1084 ml 200 ml 3157 ml Output Total 400 ml 1000 ml 3380 ml Balance 684 ml -800 ml -223 ml Intake Oral 1084 ml 200 ml 1984 ml IV Total 1173 ml Output Urine Total 400 ml 1000 ml 3380 ml # Voids 1 3 # Bowel Movements 0 1 Exam PHYSICAL EXAM: GENERAL: Alert, not in distress HEAD: atraumatic, normocephalic, no bruises. EYES: RAMÓN, EOMI, anicteric SKIN: Skin color normal, turgor normal. No visible rashes EAR, NOSE, MOUTH, THROAT: Lips, oral mucosa, tongue are moist, pink, no lesions. NECK: supple ROM normal. RESPIRATORY: Lungs clear to auscultation. Good diaphragmatic excursion. CARDIAC: normal S1 and S2; no rubs, or gallops; regular rhythm ABDOMEN: Abdomen soft, non-tender. BS normal. MUSCULOSKELETAL: ROM full, muscles are not tender EXTREMITIES: no pitting edema in LE, no new deformities or skin discoloration. NEURO: Alert, oriented X 3, , Cranial nerves II-XII intact, Grossly normal motor function. PULSES: 2+ radial, 2+ carotid REVIEW OF SYSTEMS: GENERAL: no malaise, no fevers., SEE HPI HEENT: Negative for frequent or significant headaches All other reviewed and negative other than HPI. Lab and Diagnostics Result Diagram: 12/03/16 0635 12/04/16 0837 Microbiology Blood culture 2 pending X-Rays, CTs and MRIs Chest x-ray wet read by ED physician: Right lower lobe infiltrate with pleural effusion. . 12-lead ECG EKG read by ER physician: Sinus rhythm with a rate of 82, prolonged CO interval, IVCD, consider atypical RBBB, LVH with secondary repolarization abnoramality, Anterior infarct, old. . Assessment & Plan Alana Barksdale is a 68-year-old female with a past medical history of dementia, diabetes mellitus type I, CABG 3 vessels, [place], and CVA who presented to [facility] emergency Department complaining of abrupt onset substernal chest pain. Chest pain, present on admission - improved - Cardiac risk factors include: Previous ID, age, hypertension, hyperlipidemia, diabetes mellitus type I and former smoker, CABG - EKG showed an old anterior infarct without ischemic changes such as ST elevation or depression. - Troponin normal Plan - treat patient for CHF exacerbation and Pneumonia - NM stress test Acute right lower lobe community-acquired pneumonia with effusion, present on admission. Active. - stable - chest x-ray- significant for right lower lobe infiltrates - Pro-calcitonin elevated at 0.40. Plan - ceftriaxone 2g every 24 hours azithromycin 500 mg daily - Follow up Blood culture 2, sputum Gram stain and culture, strep pneumonia and legionella urine antigens, and respiratory viral PCR. Acute on Chronic diastolic CHF - stable Plan -lasix, BB - stress test Hyperlipidemia - Stable. - Continue current meds Depression, present on admission. Stable. - Continue fluoxetine 10 mg daily. Diabetes mellitus type I, present on admission. - stable - c/w current meds Hypothyroidism, presents on admission - stable - Continue levothyroxine. PRN antiemetics: Zofran and Maalox. PRN bowel regimen: Senna and MiraLAX. PRN analgesics: Tylenol. DVT PROPHYLAXIS: Heparin Code status: Patient like to be DO NOT RESUSCITATE Disposition: discharge in 1-3 days after patient improves. Labs, radiology tests, Tele and ECG reviewed. Plan of care, medication side effects, home medication, diagnostic procedures and available alternatives were discussed and reviewed with patient/family. All questions answered. Patient/family verbalized understanding, approved and agreed to plan of care. Given patient's current condition, I certify, in my opinion inpatient services greater than two midnights are medically necessary for this patient. Please see H&P and MD progress notes for additional information about patient's course of treatment. VTE Prophylaxis: Sub-Q Heparin (Unfractionated) Resuscitation Status: DNR/DNI:Do Not Resuscitate/Intubate Yovany Thomason MD Dec 04, 2016 14:56
[2016-12-04] MEDS: cefTRIAXone Inj 2,000 MG in Dextrose 5% Minibag Plus 50 ML IV SCH (15:47)
--- NOTE | 2016-12-04 16:47 | NUR ---
Social Work-continued d/c planning: Data:EMR reviewed. Pt is on day 2 of hospitalization for right lower lobe pneumonia per H&P. Pt is not medically stable anticipate several days. MD order received for arranging PCP appointment. Family would like pt to see Dr. Shawanda Walter. UR specialist placed a call to Clinic and arranged pt's appointment for Saturday 12/09 at 1120. SW placed call to son Ed to inform him of appointment, he is agreeable to plan. Pt does not have the capacity for self care, but Son and family provide 24/7 care for pt at home. SW will continue to follow. Assessment:Pt who has 24/7 care at home. Plan:Pt to discharge home with 24/7 care when medically stable via POV. PCP appointment made for Saturday 12/[address] Shawanda Walter. SW will continue to follow. HUMAIRA Philip
--- NOTE | 2016-12-04 19:53 | NUR ---
FAMILY CONFERENCE WITH PCP/NETWORK SUPPORT TECHNICIAN Family request that pt does not have direct discussions regarding changes in her care with a physician unless a family member is present. Family aware that a die casting machine operator consult has been ordered for tomorrow. Son Berry plans to be here early in am and hopes that social media specialist can arrange a family meeting with a die casting machine operator to discuss pt's stress test results and plans for treatments. This was communicated to night-shift RN and a message was also left with a social media specialist regarding this.
[2016-12-04] MEDS: Insulin GLARgine 100 Unit/mL Syringe SUBQ SCH (21:00)
[2016-12-05] VITALS (9 sets, daily range): BP systolic 105–138; BP diastolic 55–84; PULSE 60–91; RESP 16–18; O2SAT 94–99
[2016-12-05] MEDS: Insulin LISPRO 300 Unit/3 mL Inj SUBQ SCH ×7 (07:30→22:25)
[2016-12-05] MEDS ORDERED: Furosemide 10 mg/mL 2 mL Inj IVPUSH SCH (08:30)
--- NOTE | 2016-12-05 08:57 | NUR ---
Social Work-continued d/c planning: Data:EMR reviewed. Pt is on day 3 of hospitalization for right lower lobe pneumonia per H&P. Pt is not medically stable anticipate several more days. SW updated by bedside RN that Son Ed would like to speak with SW. Ed states that he would like to meet with cardiology today and hospitalist regarding results of stress test. Son states that pt's dramatic agent in [place] is [phone]. SW explained that this information would be provided to hospitalist who states he will discuss with cardiology. Phone number and information passed along to hospitalist as well as dramatic agent information in [place]. Hospitalist states he will speak with son. No other concerns noted from son. Son also requesting information regarding Medicare supplemental insurance. SW provided Son with information regarding [facility]. SW will continue to follow. Assessment:Pt who has 24/7 care at home. Plan:Pt to discharge home with family to provide 24/7 care at home. SW provided information and son's concerns along to hospitalist who will speak with cardiology regarding pt, phone number and name provided to hospitalist of Fitness Instructor in [place] provided to hospitalist as well. SW will continue to follow. HUMAIRA Philip
[2016-12-05] MEDS: Heparin 5,000 Unit/mL Inj SUBQ SCH ×2 (09:06→16:33)
[2016-12-05] MEDS: Sodium Chloride LOK Flush 10 mL Syringe IVFLUSH SCH ×2 (09:09→16:33)
[2016-12-05] MEDS: Azithromycin Inj 500 MG in Dextrose 5% w/Vial Mate 250 ML IV SCH (09:09)
--- NOTE | 2016-12-05 09:13 | PCM.PNMED ---
Subjective Date of Service Dec 05, 2016 Subjective Patient seen and examined. She said she had some heavyness on her chest last night. Vitals noted. Exam Vital Signs Vital Sign - Last Date Time Temp Pulse Resp B/P Pulse Ox O2 Delivery O2 Flow Rate FiO2 12/05/16 06:09 91 12/05/16 05:09 36.2 18 124/62 99 Room Air Intake and Output 12/04/16 12/04/16 12/05/16 Cumulative From/Thru 15:00 23:00 07:00 12/02/16 04:01 - 12/05/16 06:29 Intake Total 1000 ml 0 ml 4157 ml Output Total 850 ml 1300 ml 5530 ml Balance 150 ml -1300 ml -1373 ml Intake Oral 1000 ml 0 ml 2984 ml IV Total 1173 ml Output Urine Total 850 ml 1300 ml 5530 ml # Voids 2 5 # Bowel Movements 1 0 2 Exam GENERAL: Alert, not in distress HEAD: atraumatic, normocephalic, no bruises. EYES: RAMÓN, EOMI, anicteric SKIN: Skin color normal, turgor normal. No visible rashes EAR, NOSE, MOUTH, THROAT: Lips, oral mucosa, tongue are moist, pink, no lesions. RESPIRATORY: Lungs clear to auscultation. Good diaphragmatic excursion. CARDIAC: normal S1 and S2; no rubs, or gallops; irregular rhythm ABDOMEN: Abdomen soft, non-tender. BS normal. PULSES: 2+ radial, 2+ carotid Lab and Diagnostics Result Diagram: 12/03/16 0635 12/04/16 0837 Microbiology Blood culture 2 pending X-Rays, CTs and MRIs Chest x-ray wet read by ED physician: Right lower lobe infiltrate with pleural effusion. . 12-lead ECG EKG read by ER physician: Sinus rhythm with a rate of 82, prolonged SC interval, IVCD, consider atypical RBBB, LVH with secondary repolarization abnoramality, Anterior infarct, old. . Additional Diagnostics NM Scan IMPRESSION: 1. Abnormal study demonstrating small lateral wall infarct with moderate sized, moderately intense lateral wall isidoro-infarct ischemia. 2. Left ventricular stress phase systolic function cannot be assessed due to irregular heart rate. 3. Left ventricular rest phase function demonstrates moderate proximal septal wall hypokinesia and rest LVEF of 64%. 4. Normal hemodynamic response to pharmacologic stress. Assessment & Plan Alana Barksdale is a 68-year-old female with a past medical history of dementia, diabetes mellitus type I, CABG 3 vessels, [place], and CVA who presented to [facility] emergency Department complaining of abrupt onset substernal chest pain. Chest pain, present on admission - on and off , chest pressure - Cardiac risk factors include: Previous CA, age, hypertension, hyperlipidemia, diabetes mellitus type I and former smoker, CABG - EKG showed an old anterior infarct without ischemic changes such as ST elevation or depression. - Troponin normal - NM noted as above Plan - treat patient for CHF exacerbation and Pneumonia - Cardiology consult - her original director of rehabilitation and wellness is in [place] : Dr. Loaiza ([phone]) Acute right lower lobe community-acquired pneumonia with effusion, present on admission. Active. - stable, improving - chest x-ray- significant for right lower lobe infiltrates - Pro-calcitonin elevated at 0.40 at admission, trended down Plan - ceftriaxone 2g every 24 hours azithromycin 500 mg daily - Follow up Blood culture 2, sputum Gram stain and culture, strep pneumonia and legionella urine antigens, and respiratory viral PCR. Acute on Chronic diastolic CHF - stable Plan -lasix, BB - stress test Hyperlipidemia - Stable. - Continue current meds Depression, present on admission. Stable. - Continue fluoxetine 10 mg daily. Diabetes mellitus type I, present on admission. - glucose elevated today (upto 400s) as patient did not get lantus last night, continue monitoring, DONOT HOLD LANTUS TONIGHT (give half a dose if sugars <60 in night) - stable - c/w current meds Hypothyroidism, presents on admission - stable - Continue levothyroxine. PRN antiemetics: Zofran and Maalox. PRN bowel regimen: Senna and MiraLAX. PRN analgesics: Tylenol. DVT PROPHYLAXIS: Heparin Code status: Patient like to be DO NOT RESUSCITATE Disposition: discharge in 1-3 days after patient improves. Labs, radiology tests, Tele and ECG reviewed. Plan of care, medication side effects, home medication, diagnostic procedures and available alternatives were discussed and reviewed with patient/family. All questions answered. Patient/family verbalized understanding, approved and agreed to plan of care. Given patient's current condition, I certify, in my opinion inpatient services greater than two midnights are medically necessary for this patient. Please see H&P and MD progress notes for additional information about patient's course of treatment. VTE Prophylaxis: Sub-Q Heparin (Unfractionated) Resuscitation Status: DNR/DNI:Do Not Resuscitate/Intubate Time spent 35 mins Irving Fay MD Dec 05, 2016 09:13
[2016-12-05] MEDS: cefTRIAXone Inj 2,000 MG in Dextrose 5% Minibag Plus 50 ML IV SCH (11:23)
--- NOTE | 2016-12-05 16:45 | NUR ---
Tele readings/Failure to sense on pacer Tele reported to have a failure to sense, A pacing all over, inconsistent. notified, Pacing company - [employer] notified. Pacing company here to evaluate/interrogate, tele strip printed for review/in chart. Specialist states pacer is in MVP mode but needs to adjust sensitivity, interrogation notes placed in chart. Tele informed, no reported irregular pacing activity noted.
--- NOTE | 2016-12-05 17:13 | NUR ---
Blood Glucose/Insulin management Pt AM breakfast BG at 349. Administered insulin as ordered with 3U nutritional. Noon BG at 470. Pt had finished eating not too long ago, but states BG rises when stressed. Administered insulin as ordered with 3U nutritional. Dinner BG at 73. Pt ate very little for lunch, but planning on eating dinner. Administered 3U nutritional only. Plan for pt to be NPO at midnight, paged to consider insulin regimen.
[2016-12-05] MEDS ORDERED: diphenhydrAMINE 25 mg Capsule PO PRN (18:30)
[2016-12-05] MEDS: Insulin GLARgine 100 Unit/mL Syringe SUBQ SCH (22:24)
[2016-12-06] VITALS (8 sets, daily range): BP systolic 102–133; BP diastolic 54–61; PULSE 64–82; RESP 16–18; O2SAT 96–98
[2016-12-06] MEDS: Heparin 5,000 Unit/mL Inj SUBQ SCH ×3 (00:30→16:14)
[2016-12-06] MEDS: Sodium Chloride LOK Flush 10 mL Syringe IVFLUSH SCH ×3 (00:30→16:14)
[2016-12-06] MEDS: Insulin LISPRO 300 Unit/3 mL Inj SUBQ SCH ×5 (03:37→22:19)
[2016-12-06 07:21] LABS: BASOPHILS % (AUTO) 0.4 % (0-3); EOSINOPHILS % (AUTO) 2.9 % (0-5); MONOCYTES % (AUTO) 11.1 % (4-12); Mean Corpuscular Hemoglobin 27.3 pg (27.0-35.0); Mean Corpuscular Volume 83.3 fL (81-100); NEUTROPHILS % (AUTO) 64.7 % (40-74); Platelet Count 215 bil/L (150-400)
[2016-12-06 07:30] LABS: INR 0.91 ratio
[2016-12-06] MEDS: Azithromycin Inj 500 MG in Dextrose 5% w/Vial Mate 250 ML IV SCH (08:04)
[2016-12-06] MEDS: Furosemide 10 mg/mL 2 mL Inj IVPUSH SCH (08:07)
[2016-12-06] MEDS: cefTRIAXone Inj 2,000 MG in Dextrose 5% Minibag Plus 50 ML IV SCH (10:26)
--- NOTE | 2016-12-06 16:15 | PCM.PNMED ---
Subjective Date of Service Dec 06, 2016 Subjective Patient seen and examined.She feels much better. No chest pressure. Vitals noted. Exam Vital Signs Vital Sign - Last Date Time Temp Pulse Resp B/P Pulse Ox O2 Delivery O2 Flow Rate FiO2 12/06/16 12:20 37.1 67 16 102/55 98 Room Air 12/05/16 14:48 2.00 Intake and Output 12/05/16 12/05/16 12/06/16 Cumulative From/Thru 15:00 23:00 07:00 12/02/16 04:01 - 12/05/16 23:27 Intake Total 411 ml 1036 ml 5604 ml Output Total 500 ml 6030 ml Balance 411 ml 536 ml -426 ml Intake Oral 1036 ml 4020 ml IV Total 411 ml 1584 ml Output Urine Total 500 ml 6030 ml # Voids 3 8 # Bowel Movements 1 3 Exam GENERAL: Alert, not in distress HEAD: atraumatic, normocephalic, no bruises. EYES: RAMÓN, EOMI, anicteric SKIN: Skin color normal, turgor normal. No visible rashes EAR, NOSE, MOUTH, THROAT: Lips, oral mucosa, tongue are moist, pink, no lesions. RESPIRATORY: Lungs clear to auscultation. Good diaphragmatic excursion. CARDIAC: normal S1 and S2; no rubs, or gallops; irregular rhythm ABDOMEN: Abdomen soft, non-tender. BS normal. PULSES: 2+ radial, 2+ carotid Lab and Diagnostics Result Diagram: 12/06/16 0651 12/06/16 0651 Microbiology Blood culture 2 pending X-Rays, CTs and MRIs Chest x-ray wet read by ED physician: Right lower lobe infiltrate with pleural effusion. . 12-lead ECG EKG read by ER physician: Sinus rhythm with a rate of 82, prolonged MD interval, IVCD, consider atypical RBBB, LVH with secondary repolarization abnoramality, Anterior infarct, old. . Additional Diagnostics NM Scan IMPRESSION: 1. Abnormal study demonstrating small lateral wall infarct with moderate sized, moderately intense lateral wall isidoro-infarct ischemia. 2. Left ventricular stress phase systolic function cannot be assessed due to irregular heart rate. 3. Left ventricular rest phase function demonstrates moderate proximal septal wall hypokinesia and rest LVEF of 64%. 4. Normal hemodynamic response to pharmacologic stress. Assessment & Plan Alana Barksdale is a 68-year-old female with a past medical history of dementia, diabetes mellitus type I, CABG 3 vessels, [place], and CVA who presented to [facility] emergency Department complaining of abrupt onset substernal chest pain. Chest pain, present on admission - resolved - Cardiac risk factors include: Previous [place], age, hypertension, hyperlipidemia, diabetes mellitus type I and former smoker, CABG - EKG showed an old anterior infarct without ischemic changes such as ST elevation or depression. - Troponin normal - NM noted as above Plan - treat patient for CHF exacerbation and Pneumonia - Cardiology consult, discussed with Dr. Holloway, no aggressive interventions at this point unless patient becomes symptomatic again, outpatient follow up - her original turf sales person is in [place] : Dr. Loaiza ([phone]) Diabetes mellitus type I, present on admission. -glucose to be controlled better, patient's sugars are labile - will increase long acting lantus to 12, and keep lispro 3 TID dose - stable - c/w current meds Acute right lower lobe community-acquired pneumonia with effusion, present on admission. Active. - stable, improving - chest x-ray- significant for right lower lobe infiltrates - Pro-calcitonin elevated at 0.40 at admission, trended down , will repeat tomorrow Plan - ceftriaxone 2g every 24 hours azithromycin 500 mg daily - Blood culture 2, sputum Gram stain and culture, strep pneumonia and legionella urine antigens, and respiratory viral MD, all negative at this point Acute on Chronic diastolic CHF - stable Plan -lasix, BB Hyperlipidemia - Stable. - Continue current meds Depression, present on admission. Stable. - Continue fluoxetine 10 mg daily. Hypothyroidism, presents on admission - stable - Continue levothyroxine. PRN antiemetics: Zofran and Maalox. PRN bowel regimen: Senna and MiraLAX. PRN analgesics: Tylenol. DVT PROPHYLAXIS: Heparin Code status: Patient like to be DO NOT RESUSCITATE Disposition: discharge in 1-3 days after patient improves. Labs, radiology tests, Tele and ECG reviewed. Plan of care, medication side effects, home medication, diagnostic procedures and available alternatives were discussed and reviewed with patient/family. All questions answered. Patient/family verbalized understanding, approved and agreed to plan of care. Given patient's current condition, I certify, in my opinion inpatient services greater than two midnights are medically necessary for this patient. Please see H&P and progress notes for additional information about patient's course of treatment. VTE Prophylaxis: Sub-Q Heparin (Unfractionated) VTE Mechanical Devices: Intermittant Pneumatic CD Resuscitation Status: DNR/DNI:Do Not Resuscitate/Intubate Time spent 35 mins Irving Fay MD Dec 06, 2016 16:15
[2016-12-06] MEDS ORDERED: Insulin LISPRO 300 Unit/3 mL Inj SUBQ SCH (17:00)
--- NOTE | 2016-12-06 17:40 | NUR ---
Blood sugars Hypergylcemia present this shift. Lantus HS increased and nutrition lispro added. ACHS and 3am checks in place.
[2016-12-06] MEDS ORDERED: Insulin GLARgine 100 Unit/mL Syringe SUBQ SCH (21:00)
[2016-12-07] MEDS: Sodium Chloride LOK Flush 10 mL Syringe IVFLUSH SCH ×2 (01:17→07:56)
[2016-12-07] MEDS: Heparin 5,000 Unit/mL Inj SUBQ SCH ×3 (01:17→08:02)
[2016-12-07 04:51] VITALS: BP 120/58; PULSE 64; RESP 16; O2SAT 97
--- NOTE | 2016-12-07 06:28 | NUR ---
NOC PT A/Ox3, but a little forgetful. VS all WNL. Lungs are CTA. PT on room air. PT is both continent and incontinent of urine. PT slept only about 5 hours this shift as she had a difficult time falling asleep. BG was in 300's at 2200 and then 130 at 0300. Reminded pt that she should be checking her BG at home in the middle of the night due to it's labile nature. PT is a SBA for ambulation. Gait is slow and she is a little off balance. PT reportedly has several family members at home that are her caregivers. Tele d/c'd on this pt. Plan is for likely d/c today.
[2016-12-07] MEDS: Insulin LISPRO 300 Unit/3 mL Inj SUBQ SCH ×2 (07:53→11:50)
[2016-12-07] MEDS: Furosemide 10 mg/mL 2 mL Inj IVPUSH SCH (07:56)
[2016-12-07] MEDS: cefTRIAXone Inj 2,000 MG in Dextrose 5% Minibag Plus 50 ML IV SCH (10:02)
[2016-12-07 12:01] VITALS: BP 119/70; PULSE 70; RESP 18; O2SAT 96
[2016-12-07] MEDS ORDERED: METO25TA6 PO (14:17)
[2016-12-07] MEDS ORDERED: INSU100V7 SUBQ (14:17)
[2016-12-07] MEDS ORDERED: ASPI81TA3 PO (14:21)
[2016-12-07] MEDS ORDERED: LEVO500T79 PO (14:21)
--- NOTE | 2016-12-07 14:22 | PCM.DIMED ---
Discharge Instructions Date of Service Dec 07, 2016 Dates of Hospitalization Dec 02, 2016 at 04:48 Discharge Diagnosis Discharge Diagnosis Chest pain Pneumonia Diet Discharge Diet: Heart Healthy, Diabetic Activity Discharge Activity: No restrictions Call your provider Call your provider for: Fever or Chills, Chest pain, Excessive diarrhea Patient Instructions Follow-up with PCP in: 1 week (follow up CXR in 3-4 weeks to check resolution of pneumonia ) Provider: Robert Ruelas MD Follow-up in: 1 week Irving Fay MD Dec 07, 2016 14:22
--- NOTE | 2016-12-07 14:35 | PCM.DC.MED ---
Discharge Summary Date of Service Dec 07, 2016 Dates of Hospitalization Date of Hospital Admission Dec 02, 2016 at 04:48 Date of Discharge: Dec 07, 2016 Providers: Admitting Physician: Jenny Ahuja DO Primary Care Physician: Sanjiv Attending Physician: Ros Vasquez MD Diagnosis at Time of Discharge Diagnosis at Time of Discharge Chest pain Pneumonia Procedures XRay, CTs & MRIs Chest x-ray wet read by ED physician: Right lower lobe infiltrate with pleural effusion. . ECG 12 Lead EKG read by ER physician: Sinus rhythm with a rate of 82, prolonged NJ interval, IVCD, consider atypical RBBB, LVH with secondary repolarization abnoramality, Anterior infarct, old. . Other Diagnostics NM Scan IMPRESSION: 1. Abnormal study demonstrating small lateral wall infarct with moderate sized, moderately intense lateral wall isidoro-infarct ischemia. 2. Left ventricular stress phase systolic function cannot be assessed due to irregular heart rate. 3. Left ventricular rest phase function demonstrates moderate proximal septal wall hypokinesia and rest LVEF of 64%. 4. Normal hemodynamic response to pharmacologic stress. Brief History Alana Barksdale is a 68-year-old female with a past medical history of dementia, diabetes mellitus type I, CABG 3 vessels, NJ, and CVA who presented to [facility] emergency Department complaining of abrupt onset substernal chest pain. She reports abrupt onset chest pressure around bedtime. She reports accompanying subjective shortness of breath, lightheadedness, slight headache, and pain in the middle of her back. The chest pressure did not radiate. She denies jaw, neck, shoulder or arm pain. She was given Nitro 0.4 mg SL x3 at 01:00 en route. She reports that the pain resolved but the pressure has persisted. She denies any history of stent implantation. She does have a long-standing history of a right lung effusion that has been tapped several times. She recently moved to [place] from [place], [place] to live with her son for worsening dementia. She denies headache, sore throat, rhinitis, cough, abdominal pain, nausea, vomiting, fever, chills, dysuria, diarrhea or constipation. She has had no recent sick contacts. Vital signs in the ER: Temperature 36.9. Pulse 85. Respiratory rate 13. Blood pressure 197/91. Pulse ox 98% on room air. No PCP. . Hospital Course Alana Barksdale is a 68-year-old female with a past medical history of dementia, diabetes mellitus type I, CABG 3 vessels, NJ, and CVA who presented to [facility] emergency Department complaining of abrupt onset substernal chest pain. Chest pain, present on admission - resolved - Cardiac risk factors include: Previous NJ, age, hypertension, hyperlipidemia, diabetes mellitus type I and former smoker, CABG - EKG showed an old anterior infarct without ischemic changes such as ST elevation or depression. - Troponin normal - NM noted as above Plan - treat patient for CHF exacerbation and Pneumonia - Cardiology consult, discussed with Dr. Ruelas/ Dr. Holloway, no aggressive interventions at this point unless patient becomes symptomatic again, outpatient follow up - her original legend maker is in [place] : Dr. Loaiza ([phone]) Diabetes mellitus type I, present on admission. -glucose to be controlled better, patient's sugars are labile - will increase long acting lantus to 12, and keep lispro 3 TID dose - stable - c/w current meds Acute right lower lobe community-acquired pneumonia with effusion, present on admission. Active. - stable, improving - chest x-ray- significant for right lower lobe infiltrates - Pro-calcitonin elevated at 0.40 at admission, trended down , will repeat tomorrow Plan - levofloxacin X 7 days - Blood culture 2, sputum Gram stain and culture, strep pneumonia and legionella urine antigens, and respiratory viral NJ, all negative at this point Acute on Chronic diastolic CHF - stable Plan -lasix, BB Hyperlipidemia - Stable. - Continue current meds Depression, present on admission. Stable. - Continue fluoxetine 10 mg daily. Hypothyroidism, presents on admission - stable - Continue levothyroxine. PRN antiemetics: Zofran and Maalox. PRN bowel regimen: Senna and MiraLAX. PRN analgesics: Tylenol. DVT PROPHYLAXIS: Heparin Code status: Patient like to be DO NOT RESUSCITATE Exam Vital Signs (Last) Date Time Temp Pulse Resp B/P Pulse Ox O2 Delivery O2 Flow Rate FiO2 12/07/16 12:01 36.9 70 18 119/70 96 Room Air 12/05/16 14:48 2.00 Test 12/02/16 03:16 12/02/16 04:48 12/02/16 06:20 12/02/16 09:10 Hemoglobin A1c 9.0% (4.8-5.6) Magnesium Level 1.8mg/dL (1.6-2.6) Total Bilirubin 0.2mg/dL (0.0-1.2) Aspartate Amino Transf (AST/SGOT) 18U/L (0-50) Alanine Aminotransferase (ALT/SGPT) 10U/L (0-32) Alkaline Phosphatase 124U/L (25-165) Total Protein 7.2g/dL (6.4-8.4) Albumin 4.1g/dL (3.4-5.0) Thyroid Stimulating Hormone (TSH) 0.455uIU/mL (0.450-4.500) Free Thyroxine 1.33ng/dL (0.82-1.77) Lactic Acid Level 0.7mmol/L (0.4-2.0) Urine Legionella pneumophilia Ag Negative (Negative) Total Creatine Kinase 67U/L (21-215) Creatine Kinase MB 3.2ng/mL (0.0-5.3) Creatine Kinase MB % % (0.0-5.0) Test 12/03/16 06:35 12/03/16 12:00 12/06/16 06:51 12/07/16 07:55 Troponin T 0.010ug/L (0.0-0.011) Pro-B-Type Natriuretic Peptide 1792pg/mL (0-738) Triglycerides Level 76mg/dL (0-149) Cholesterol Level 216mg/dL (100-199) LDL Cholesterol, Calculated 129.800mg/dL (0-99) VLDL Cholesterol 15.200mg/dL HDL Cholesterol 71mg/dL (>39) Cholesterol/HDL Ratio 3.04 (0.0-4.4) Hold Urine Received (Received) White Blood Count 6.8th/mm3 (3.8-10.1) Red Blood Count 4.43mil/mm3 (3.90-5.20) Hemoglobin 12.1g/dL (12.0-15.6) Hematocrit 36.9% (35.0-46.0) Mean Corpuscular Volume 83.3fL (81-100) Mean Corpuscular Hemoglobin 27.3pg (27.0-35.0) Mean Corpuscular Hemoglobin Concent 32.8% (32.0-37.0) Red Cell Distribution Width 14.0% (12.3-15.4) Platelet Count 215bil/L (150-400) Neutrophils (%) (Auto) 64.7% (40-74) Lymphocytes (%) (Auto) 20.8% (14-46) Monocytes (%) (Auto) 11.1% (4-12) Eosinophils (%) (Auto) 2.9% (0-5) Basophils (%) (Auto) 0.4% (0-3) Prothrombin Time 9.7sec (8.1-12.5) Prothromb Time International Ratio 0.91ratio Sodium Level 136mEq/L (134-144) Potassium Level 4.7mEq/L (3.5-5.2) Chloride Level 96mEq/L (97-108) Carbon Dioxide Level 26mmol/L (18-29) Blood Urea Nitrogen 35mg/dL (8-27) Creatinine 0.93mg/dL (0.57-1.00) Estimat Glomerular Filtration Rate 84mL/min (>59) Glucose Level 407mg/dL (60-99) Calcium Level 9.5mg/dL (8.5-10.1) Procalcitonin 0.09ng/mL (0.00-0.08) Microbiology Results Blood culture 2 pending Discharge Medications Discharge Medications Aspirin Chew (Aspirin Chew) 81 Mg Chew 81 MG PO DAILY Prescribed by: ROS VASQUEZ MD Atorvastatin (Lipitor) 20 Mg Tablet 20 MG PO DAILY (Reported) Bimatoprost (Lumigan) 45 Drop/2.5 Ml Ophsoln 45 DROP OD HS (Reported) Carvedilol (Carvedilol) 3.125 Mg Tablet 3.125 MG PO DAILY (Reported) Clopidogrel Bisulfate (Plavix) 75 Mg Tablet 75 MG PO DAILY (Reported) Fluoxetine (Fluoxetine) 10 Mg Capsule 10 MG PO DAILY (Reported) Furosemide (Furosemide) 20 Mg Tab 20 MG PO DAILY (Reported) take 1 tab daily PRN for weight gain of 2# or more a day or 5# weekly, do not exceed 1 tab in 24 hrs Insulin Glargine (Lantus U100 Solostar Insulin Pen) 100 Unit/1 Ml Insuln.pen 7 UNIT SUBQ QPM (Reported) cut dose in 1/2 if nothing by mouth Insulin Glargine (Lantus U100 Insulin Vial) 100 Unit/Ml Vial 12 UNIT SUBQ HS Prescribed by: ROS VASQUEZ MD Insuln Asp Prt/Insulin Aspart (NovoLOG 70/30 U100 Insulin Flexpen) 100 Unit/Ml Unit 1 UNIT SUBQ HS (Reported) per sliding scale Levofloxacin (Levofloxacin) 500 Mg Tablet 500 MG PO DAILY Prescribed by: ROS VASQUEZ MD Levothyroxine (Levothyroxine) 112 Mcg Tablet 112 MCG PO DAILY (Reported) Metoprolol Tartrate (Metoprolol Tartrate) 25 Mg Tablet 12.5 MG PO BID Prescribed by: ROS VASQUEZ MD As needed Nitroglycerin SL (Nitroglycerin SL) 0.4 Mg Tab.subl 0.4 MG SL PRN as needed ( Reported) Miscellaneous Medications Brimonidine Tartrate (Alphagan P) 5 Ml Drops 5 ML OP (Reported) Eplerenone (Inspra) 25 Mg Tablet 25 MG PO (Reported) Followup Plan Discharge Diet: Heart Healthy, Diabetic Discharge Activity: No restrictions Follow-up with PCP in: 1 week (follow up CXR in 3-4 weeks to check resolution of pneumonia ) Provider: Robert Ruelas MD Follow-up in: 1 week Time spent 35 mins Ros Vasquez MD Dec 07, 2016 14:35
--- NOTE | 2016-12-07 15:40 | NUR ---
Social Work: Discharge Data: Pt is on day 5 of hospitalization. EMR reviewed. Pt discussed in multidisciplinary rounds. MD states pt possibly ready for d/c today. D/C orders are now in, disposition is home. Pt has 24/ caregiving at home and has no further d/c planning needs at this time. CUSTOMER SALES SPECIALIST will continue to follow if needs arise. Assessment: Pt with caregiving at baseline, currently at baseline. Plan: Pt will d/c home via POV today. No further d/c planning needs at this time. CUSTOMER SALES SPECIALIST will continue to follow if needs arise. HUMAIRA Ye
[2016-12-07 16:06] VITALS: BP 129/76; PULSE 71; RESP 16; O2SAT 97
--- NOTE | 2016-12-07 16:12 | NUR ---
Discharge Patient given discharge orders. Patient son called for discharge. Patient given hard copies of prescriptions. Patient given medication list with written times of when next dose is due. Patient IV removed fully intact and asymptomatic. Patient given follow up instructions with appointment date and time. Patient given informational packets. Patient assisted to main entrance via wheelchair and staff.
== END 2016-12-07 16:26 | disposition home or self-care (01) | DRG 291 ==
LOC: EDBD 03:50 → SED 03:50 → MPC 04:48
PROVIDERS: ADMIT Internal Medicine; ATTEND Internal Medicine
DX: I50.33 Acute on chronic diastolic (congestive) heart failure (principal); J18.9 Pneumonia, unspecified organism; F03.90 Unspecified dementia, unspecified severity, without behavioral disturbance, psychotic disturbance, mood disturbance, and anxiety; E10.9 Type 1 diabetes mellitus without complications; E78.5 Hyperlipidemia, unspecified; F32.9 Major depressive disorder, single episode, unspecified; E03.9 Hypothyroidism, unspecified; Z79.4 Long term (current) use of insulin; Z87.891 Personal history of nicotine dependence; Z95.1 Presence of aortocoronary bypass graft